=== PATIENT | male | born 1960 | race Caucasian/White ===

== ENCOUNTER 2017-02-04 11:34 | Emergency (ER) | payer SELFPAY ==
--- NOTE | 2017-02-04 21:33 | ER ---
ADMIT: 02/04/2017 RM/LOC: ER [facility] MR#: [id number] [address] [id number] DIDIER BARRIOS [address] [place] [id number] Emergency Room Report SEX: M AGE: 56 : 1960 DATE: 02/04/2017 ADDENDUM: CHIEF COMPLAINT: Abdominal pain. HISTORY OF PRESENT ILLNESS: This is a 56-year-old male whose pain started sudden onset when he was helping his son lift a couch yesterday. His pain on examination is suprapubic and right and left lower quadrant. He does have some rebound and guarding. A CT was done, it is negative for any severe findings. There is questionable gastroenteritis, an old injury to the spleen. The patient's pain has improved with morphine, but he still feels it a little bit. I am not able to palpate any hernias. CLINICAL IMPRESSION: Abdominal pain, right and left lower quadrant. DISPOSITION: Stable at discharge and will follow up or return if worsen. JOHNNY Foster / Jalen Samuel MD / cat JOB #: [id number] CC: Jalen Samuel MD, Attending Physician Thu Perez MD, Family Physician
== END 2017-02-04 13:47 | disposition home or self-care (01) ==
LOC: ER 11:34
DX: R10.31 Right lower quadrant pain (principal); R10.32 Left lower quadrant pain; F17.210 Nicotine dependence, cigarettes, uncomplicated; Z79.01 Long term (current) use of anticoagulants; Z88.1 Allergy status to other antibiotic agents; Z88.2 Allergy status to sulfonamides